=== PATIENT | male | born 1970 | race Caucasian/White ===

== ENCOUNTER 2016-11-05 21:49 | Emergency (ER) | payer BC ==
[2016-11-05 21:59] VITALS: O2SAT 94
--- NOTE | 2016-11-05 22:15 | EDPHY ---
H & P Stated Complaint: fell of railing he was balancing on, struck chest on railing an hour ago Time Seen by Provider: 11/05/16 22:00 HPI/ROS: Chief Complaint: Chest injury HPI: 45-year-old male was walking on a metal bar when he slipped and fell striking central chest on the bar. Knocked the wind out of him mildly. Did not his head. No loss of consciousness. Since that time has had pain on the left sternal border and into his left arm pit. Pain is been dull and progressing over the last couple of hours. He has no real shortness of breath. Does have some pain with very deep inspiration. It is not stabbing sharp like but just dull. No fevers or chills. No cough. No other complaints at this time ROS: 10 point Review of Systems is negative except as noted in the HPI. PMH: Crohn's disease Medications: None Allergies: None Social History: No smoking, positive alcohol, rare marijuana Family History: non-contributory Physical Exam: Gen: Awake, Alert, No Distress HEENT: Nose: no rhinorrhea Eyes: PERRLA, EOMI Mouth: Moist mucosa Neck: Supple, no JVD Chest: Moderate left parasternal tenderness without step-offs, is mild left rib 4th and 5th mid axillary tenderness, no bruising noted, lungs clear to auscultation Heart: S1, S2 normal, no murmur Abd: Soft, non-tender, no guarding Back: no CVA tenderness, no midline tenderness Ext: no edema, non-tender Skin: no rash Neuro: CN II-XII intact, Sensation grossly intact, Strength 5/5 in bilateral upper and lower extremities - Personal History Current Tetanus/Diphtheria Vaccine: Yes - Medical/Surgical History Hx Asthma: No Hx Chronic Respiratory Disease: No Hx Diabetes: No Hx Cardiac Disease: No Hx Renal Disease: No Hx Cirrhosis: No Hx Alcoholism: No Hx HIV/AIDS: No Hx Splenectomy or Spleen Trauma: No Other PMH: PMHx: Crohn's, L tibia fracture. PSHx: lymph node in neck removed, Bilateral inguinal hernia repair. - Social History Smoking Status: Never smoked Constitutional: Initial Vital Signs Temperature (C) 37 C 11/05/16 21:56 Heart Rate 93 11/05/16 21:56 Respiratory Rate 17 11/05/16 21:56 Blood Pressure 128/80 H 11/05/16 21:56 O2 Sat (%) 94 11/05/16 21:56 O2 Delivery Mode Room Air Allergies/Adverse Reactions: No Known Allergies Allergy (Unverified 09/15/14 16:39) Home Medications: Medication Instructions Recorded NK [No Known Home Meds] 03/15/16 Medical Decision Making - Diagnostics Imaging Results: Imaging Impressions Chest X-Ray 11/05/16 22:12 Impression: Chest negative for acute posttraumatic sequela. A displaced rib fracture is not seen. Imaging: I viewed and interpreted images myself ED Course/Re-evaluation: 45-year-old status post chest injury. He has moderate parasternal tenderness. Also some x-ray tenderness. Chest x-ray is negative for acute posttraumatic injury. Patient is otherwise well-appearing. Good oxygenation. Will discharge with follow-up with primary care physician. Departure - Departure Disposition: Home, Routine, Self-Care Clinical Impression: Chest wall injury Condition: Good Instructions: Chest Wall Pain (ED) Additional Instructions: You may take ibuprofen and acetaminophen as needed for the pain. Return to the emergency depart for increasing shortness of breath, worsening pain with breathing, abdominal pain, or any other concerns. Follow up with your primary care physician 3-4 days if symptoms are not improving. Referrals: Aly Carrillo MD [Primary Care Provider] - As per Instructions
[2016-11-05 22:51] VITALS: BP 125/85; PULSE 86; RESP 20; TEMP 98.2
== END 2016-11-05 22:50 | disposition home or self-care (01) ==
DX: S29.9XXA Unspecified injury of thorax, initial encounter (principal); W01.0XXA Fall on same level from slipping, tripping and stumbling without subsequent striking against object, initial encounter

== ENCOUNTER 2016-11-16 22:47 | Emergency (ER) | payer BC ==
[2016-11-16 22:54] VITALS: RESP 16; TEMP 98.2
--- NOTE | 2016-11-16 23:05 | CPEKG ---
Heart Rate: 79 RR Interval: 759 P-R Interval: 172 QRSD Interval: 86 QT Interval: 360 QTC Interval: 413 P [place]: 45 QRS [place]: 63 T Wave [place]: 51 EKG Severity - OTHERWISE NORMAL ECG - EKG Impression: SINUS RHYTHM EKG Impression: VENTRICULAR PREMATURE COMPLEX Electronically Signed By: Evelyn James 17-Nov-2016 05:27:29
[2016-11-16 23:31] LABS: % IMMATURE GRANULYOCYTES 0.3 % (0.0-1.1); ABSOLUTE IMMATURE GRANULOCYTES 0.02 10^3/uL (0.00-0.10); ADD DIFF? NO; ADD MORPH? NO; ADD SCAN? NO; ATYPICAL LYMPHOCYTE FLAG 10 (0-99); FRAGMENT RBC FLAG 0 (0-99); HEMATOCRIT 45.8 % (40.0-51.0); HEMOGLOBIN 15.8 g/dL (13.7-17.5); LEFT SHIFT FLG 0 (0-99); LIPEMIA HEMOLYSIS FLAG 90 (0-99); MEAN CELL HEMOGLOBIN CONCENTR. 34.5 g/dL (32.4-36.7); MEAN PLATELET VOLUME 9.9 fL (8.7-11.7); PLATELET CLUMPS FLAG 30 (0-99); PLATELET COUNT 234 10^3/uL (150-400); RED BLOOD CELL COUNT 5.45 10^6/uL (4.40-6.38); RED CELL DISTRIBUTION WIDTH 13.1 % (11.5-15.2)
[2016-11-17 00:02] LABS: ANION GAP 13 mEq/L (8-16); CARBON DIOXIDE 23 mEq/l (22-31); CHLORIDE 106 mEq/L (97-110); GLOMERULAR FILTRATION RATE > 60; GLUCOSE 91 mg/dL (70-100); POTASSIUM 4.2 mEq/L (3.5-5.2); SODIUM 142 mEq/L (134-144)
[2016-11-17 00:08] LABS: TROPONIN I < 0.012 ng/mL (0-0.034)
--- NOTE | 2016-11-17 00:13 | EDPHY ---
H & P Stated Complaint: palpitations x1 week and L chest pain s/p fall Time Seen by Provider: 11/16/16 23:36 HPI/ROS: HPI The patient presents with palpitations which have been present for the last 1 week. They occur every few seconds and today while lying in bed he felt the more frequently and was concerned, thus presented to the emergency room. He has had a history of these for several years, he has been evaluated previously with an event monitor and told that he had skipped beats. About 3 days ago while standing he had an episode of fluttering in his chest lasting for few seconds and then improving on its own. He has not had any fainting. He has had chest pain, however about a month ago had a fall landing on his chest. His pain initially subsided, then it returned and is in his left chest and is sharp in nature, does not radiate and is worse with palpation. REVIEW OF SYSTEMS Constitutional: No fever, no chills. Eyes: No discharge. ENT: No sore throat. Cardiovascular: Positive for chest pain, positive for palpitations. Respiratory: No cough, no shortness of breath. Gastrointestinal: No abdominal pain, no vomiting. Genitourinary: No hematuria. Musculoskeletal: No back pain. Skin: No rashes. Neurological: No headache. PMHx: History of arrhythmia of some sort Soc Hx: Moved here from [place] 3 years ago PHYSICAL General Appearance: Alert, no distress Eyes: Pupils equal and round no pallor or injection ENT, Mouth: Mucous membranes moist Respiratory: There are no retractions, lungs are clear to auscultation Cardiovascular: Regular rate and rhythm Gastrointestinal: Abdomen is soft and non-tender, no masses, bowel sounds normal Neurological: A&O, moves all extremities Skin: Warm and dry, no rashes Musculoskeletal: Neck is supple non tender Extremities: symmetrical, full range of motion Psychiatric: Patient is oriented X 3, there is no agitation Source: Patient Exam Limitations: No limitations - Personal History Current Tetanus/Diphtheria Vaccine: Yes Tetanus Vaccine Date: less than 10 years - Medical/Surgical History Hx Asthma: No Hx Chronic Respiratory Disease: No Hx Diabetes: No Hx Cardiac Disease: No Hx Renal Disease: No Hx Cirrhosis: No Hx Alcoholism: No Hx HIV/AIDS: No Hx Splenectomy or Spleen Trauma: No Other PMH: PMHx: Crohn's, L tibia fracture. PSHx: lymph node in neck removed, bilateral inguinal hernia repair - Social History Smoking Status: Never smoked Constitutional: Initial Vital Signs Temperature (C) 36.8 C 11/16/16 22:52 Heart Rate 81 11/16/16 22:52 Respiratory Rate 16 11/16/16 22:52 Blood Pressure 139/92 H 11/16/16 22:52 O2 Sat (%) 97 11/16/16 22:52 O2 Delivery Mode Room Air Allergies/Adverse Reactions: No Known Allergies Allergy (Unverified 09/15/14 16:39) Home Medications: Medication Instructions Recorded NK [No Known Home Meds] 03/15/16 Medical Decision Making - Diagnostics EKG Interpretation: EKG: Complete interpretation has been separately recorded in the [employer] archive. Summary impression: Normal sinus rhythm with single PVC Differential Diagnosis: This is a 46-year-old man who is healthy who presents with 1 week of more frequent palpitations. This was associated with an episode of a fluttering sensation in his heart which was quite severe 3 days ago. He also had a fall and landed on his chest about a month ago and has had pain which is well localized ever since. He has not had any syncope or shortness of breath. Differential diagnosis includes atrial fibrillation, atrial flutter, SVT, premature beats, RI. In the Emergency room labs were checked and were unremarkable. Chest x-ray was normal. On the telemetry monitoring, he was noted to have PVCs frequently. There was no ventricular tachycardia. Plan for plenty of fluids, follow up with Cardiology. - Data Points Laboratory Results: Laboratory Results 11/16/16 23:05 11/16/16 23:05 11/16/16 11/16/16 23:05 23:05 WBC 6.79 10^3/uL 10^3/uL (3.80-9.50) RBC 5.45 10^6/uL 10^6/uL (4.40-6.38) Hgb 15.8 g/dL g/dL (13.7-17.5) Hct 45.8 % % (40.0-51.0) MCV 84.0 fL fL (81.5-99.8) MCH 29.0 pg pg (27.9-34.1) MCHC 34.5 g/dL g/dL (32.4-36.7) RDW 13.1 % % (11.5-15.2) Plt Count 234 10^3/uL 10^3/uL (150-400) MPV 9.9 fL fL (8.7-11.7) Neut % (Auto) 56.3 % % (39.3-74.2) Lymph % (Auto) 29.2 % % (15.0-45.0) D[place] % (Auto) 8.5 % % (4.5-13.0) Eos % (Auto) 5.3 % % (0.6-7.6) Baso % (Auto) 0.4 % % (0.3-1.7) Nucleat RBC Rel Count 0.0 % % (0.0-0.2) Absolute Neuts (auto) 3.82 10^3/uL 10^3/uL (1.70-6.50) Absolute Lymphs (auto) 1.98 10^3/uL 10^3/uL (1.00-3.00) Absolute Monos (auto) 0.58 10^3/uL 10^3/uL (0.30-0.80) Absolute Eos (auto) 0.36 10^3/uL 10^3/uL (0.03-0.40) Absolute Basos (auto) 0.03 10^3/uL 10^3/uL (0.02-0.10) Absolute Nucleated RBC 0.00 10^3/uL 10^3/uL (0-0.01) Immature Gran % 0.3 % % (0.0-1.1) Immature Gran # 0.02 10^3/uL 10^3/uL (0.00-0.10) Sodium 142 mEq/L mEq/L (134-144) Potassium 4.2 mEq/L mEq/L (3.5-5.2) Chloride 106 mEq/L mEq/L (97-110) Carbon Dioxide 23 mEq/l mEq/l (22-31) Anion Gap 13 mEq/L mEq/L (8-16) BUN 18 mg/dL mg/dL (7-23) Creatinine 1.0 mg/dL mg/dL (0.7-1.3) Estimated GFR > 60 Glucose 91 mg/dL mg/dL (70-100) Calcium 10.0 mg/dL mg/dL (8.5-10.4) Troponin I < 0.012 ng/mL ng/mL (0-0.034) Departure - Departure Disposition: Home, Routine, Self-Care Clinical Impression: Palpitations, PVCs (premature ventricular contractions), Chest wall pain Condition: Good Instructions: Palpitations (ED) Additional Instructions: Please call the zinc plating machine operator for follow-up in the next few days. You should return to the emergency room if you developed shortness of breath, worsening chest pain, fainting, or any other symptoms that concern you. Referrals: Aly Carrillo MD [Primary Care Provider] - As per Instructions Asad Pascual MD [Medical Doctor] - As per Instructions
[2016-11-17 00:58] VITALS: BP 132/75; PULSE 85; O2SAT 96
== END 2016-11-17 00:45 | disposition home or self-care (01) ==
DX: I49.3 Ventricular premature depolarization (principal)